=== PATIENT | male | born 1995 | race American Indian/Alaskan Native ===

== ENCOUNTER 2016-11-30 05:38 | Emergency (ER) | payer BC, SELFPAY ==
[2016-11-30] MEDS ORDERED: FUL-GLO OP ONE (11:52)
[2016-11-30] MEDS ORDERED: TETRACAINE 0.5% OU PRN (11:52)
--- NOTE | 2016-11-30 12:10 | XRay Report ---
FACIAL BONES, 4 views: History: Injury, left eye pain Multiple views of the facial bones fail to show any fractures or other bony abnormalities. The maxillary sinuses are clear. IMPRESSION: Normal study.
[2016-11-30 12:25] VITALS: BP 128/74
--- NOTE | 2016-12-02 07:33 | Emergency Department Report ---
Entered by MILTON BENSON, acting as scribe for ALLI BROWN NP. ED Eye Problem HPI - General Chief complaint: Eye Problems Stated complaint: SWELLING LF EYE Time Seen by Provider: 11/30/16 11:18 Source: patient Mode of arrival: Ambulatory Limitations: No Limitations - History of Present Illness Initial comments: 21 y/o male, nontoxic, well-nourished in appearance with no acute signs of distress presents c/o left eye trauma that occured while boxing yesterday at 2030. Pt notes only one punch took place prior to stopping. Pt denies any bleeding, visual distrubances, headache, SOB, CP, fever, chills, or drainage of the eye. Pain denies pain at this current time. Patient denies pain during eye movement. Denies visual floaters. Patient denies wearing visual glasses or contact lens. No additional Sx. NKDA. chief complaint: eye injury -: days(s) (1 day ago at 2030) Onset Description: sudden Location: left eye Place: other (boxing ) If Injury: direct trauma Eye Symptoms: pain Severity: mild Severity scale (0 -10): 0 Consistency: constant Context: trauma Associated Symptoms: none Treatments Prior to Arrival: none - Related Data Previous Rx's Medication Instructions Recorded Last Taken Type Acetaminophen/Codeine [Tylenol #3] 1 tab PO TID PRN #21 tab 02/23/15 Unknown Rx Clindamycin [Clindamycin CAP] 600 mg PO BID #28 capsule 02/23/15 Unknown Rx Doxycycline Monohydrate 100 mg PO BID #20 capsule 02/24/15 Unknown Rx [Doxycycline Monohydrate CAP] Sulfamethoxazole/Trimethoprim 1 each PO BID #20 tablet 02/24/15 Unknown Rx [Bactrim DS TAB] HYDROcodone/APAP 7.5-325 [Big Bar 1 each PO Q8HR PRN #12 tablet 11/30/16 Unknown Rx 7.5/325] Allergies Allergy/AdvReac Type Severity Reaction Status Date / Time No Known Allergies Allergy Verified 02/22/15 23:27 ED Review of Systems Comment: All other systems reviewed and negative Constitutional: denies: fever Eyes: as per HPI. denies: eye pain, eye discharge, vision change ENT: denies: ear pain, throat pain Respiratory: denies: shortness of breath Cardiovascular: denies: chest pain Gastrointestinal: denies: abdominal pain, nausea, diarrhea Musculoskeletal: denies: back pain, joint swelling, arthralgia Skin: denies: rash, lesions Neurological: denies: headache ED Past Medical Hx - Past Medical History Previous Medical History?: Yes Hx Asthma: Yes (childhood) - Surgical History Past Surgical History?: No - Social History Smoking Status: Former Smoker Substance Use Type: None - Medications Home Medications: Home Medications Medication Instructions Recorded Confirmed Last Taken Type Acetaminophen/Codeine [Tylenol #3] 1 tab PO TID PRN #21 tab 02/23/15 Unknown Rx Clindamycin [Clindamycin CAP] 600 mg PO BID #28 capsule 02/23/15 Unknown Rx Doxycycline Monohydrate 100 mg PO BID #20 capsule 02/24/15 Unknown Rx [Doxycycline Monohydrate CAP] Sulfamethoxazole/Trimethoprim 1 each PO BID #20 tablet 02/24/15 Unknown Rx [Bactrim DS TAB] HYDROcodone/APAP 7.5-325 [Big Bar 1 each PO Q8HR PRN #12 tablet 11/30/16 Unknown Rx 7.5/325] ED Physical Exam - General Limitations: No Limitations General appearance: alert, in no apparent distress - Head Head exam: Present: atraumatic, normocephalic - Eye Eye exam: Present: normal appearance, PERRL, EOMI, periorbital swelling (left ) , other (left periorbital ecchymosis). Absent: scleral icterus, conjunctival injection, nystagmus, periorbital tenderness Pupils: Present: normal accommodation - Expanded Eye Exam Expanded Eyelids: Normal Inspection: Left Pupils: Regular, Round: Left, Reactive: Left Sclera/Conjunctival: Normal Inspection: Left Anterior chamber: Normal Inspection: Left Visual acuity (R) = 20/: 25 Visual acuity (L) = 20/: 25 With correction: No - ENT ENT exam: Present: normal exam, normal orophraynx, mucous membranes moist, TM's normal bilaterally, normal external ear exam - Neck Neck exam: Present: normal inspection, full ROM. Absent: tenderness, meningismus, lymphadenopathy, thyromegaly - Respiratory Respiratory exam: Present: normal lung sounds bilaterally. Absent: respiratory distress, wheezes, rales, rhonchi, stridor - Cardiovascular Cardiovascular Exam: Present: regular rate, normal rhythm. Absent: systolic murmur, diastolic murmur, rubs, gallop - GI/Abdominal GI/Abdominal exam: Present: soft, normal bowel sounds. Absent: distended, tenderness, guarding, rebound, rigid, diminished bowel sounds, hyperactive bowel sounds, hypoactive bowel sounds, organomegaly - Rectal Rectal exam: Present: deferred - Extremities Exam Extremities exam: Present: normal inspection, full ROM, normal capillary refill. Absent: tenderness, pedal edema, joint swelling - Back Exam Back exam: Present: normal inspection - Neurological Exam Neurological exam: Present: alert, oriented X3, CN II-XII intact, normal gait - Expanded Neurological Exam Expanded Patient oriented to: Present: person, place, time Speech: Present: fluid speech Cranial nerves: EOM's Intact: Normal, Gag Reflex: Normal, Tongue Deviation: Normal, Nystagmus: Normal, Facial Sensation: Normal, Facial Palsy with Forehead Movement: Normal, Facial Palsy without Forehead Movement: Normal Cerebellar function: Finger to Nose: Normal, Heel to Buckner: Normal, Romberg: Normal Upper motor neuron: [place] Neglect: Normal, Pronator Drift: Normal, Sensory Extinction: Normal Sensory exam: Upper Extremity Light Touch: Normal, Upper Extremity Pin Prick: Normal, Upper Extremity Temperature: Normal, UE 2 Point Discrimination: Normal, Lower Extremity Light Touch: Normal, Lower Extremity Pin Prick: Normal, Lower Extremity Temperature: Normal, LE 2 Point Discrimination: Normal Motor strength exam: RUE: 5, LUE: 5, RLE: 5, LLE: 5 Best Eye Response (Lei): (4) open spontaneously Best Motor Response (Celina): (6) obeys commands Best Verbal Response (Celina): (5) oriented Lei Total: 15 - Psychiatric Psychiatric exam: Present: normal affect, normal mood - Skin Skin exam: Present: warm, dry, intact, normal color. Absent: rash ED Course Vital Signs 11/30/16 05:51 Temperature 98.5 F Pulse Rate 76 Respiratory 18 Rate Blood Pressure 139/91 O2 Sat by Pulse 100 Oximetry ED Medical Decision Making - Medical Decision Making Ed course: This is a 21-year-old male that presents with left periorbital contusion status post hit in the face during a boxing match. 1- abdomen physical exam, an x-ray of the facial bone has been obtained. Results; normal with no fracture 2-under wood's lamp, I assessed for foreign body or corneal abrasion. Patient does not have signs of corneal abrasion or foreign body. 3- patient was discharged with Big Bar 7.5 mg for pain when necessary. Patient was instructed not to operate heavy machinery when taken Big Bar due to sedation. 4- patient was instructed to follow up with his primary care doctor in 3-5 days or if symptoms worsen such as blurry vision, visual changes, pus, drainage, severe swelling to refer back to the ER. 5- at the time of discharge the patient does not seem toxic or ill in appearance. No acute signs of distress noted. Patient agrees to discharge treatment plan of care. No further question about the patient. ED Disposition Clinical Impression: Periorbital contusion of left eye Disposition: DISCHARGED TO HOME OR SELFCARE Is pt being admited?: No Does the pt Need Aspirin: No Condition: Stable Additional Instructions: If symptoms worsen such as blurry vision, visual changes, pus, drainage, severe swelling to report back to the emergency room. Prescriptions: HYDROcodone/APAP 7.5-325 [Big Bar 7.5/325] 1 each PO Q8HR PRN #12 tablet PRN Reason: Pain Referrals: PRIMARY CARE, [Primary Care Provider] - 3-5 Days [facility] [Outside] - 3-5 Days [facility] [Outside] - 3-5 Days MIKY TAYLOR MD [Staff Physician] - 3-5 Days Forms: Work/School Release Form(ED) This documentation as recorded by the MARCELINO veronica MATHEW,accurately reflects the service I personally performed and the decisions made by me,ALLI BROWN, [employer] OFFSIDER.
== END 2016-11-30 12:24 | disposition home or self-care (01) ==
LOC: ED 05:38
DX: S05.12XA Contusion of eyeball and orbital tissues, left eye, initial encounter (principal); J45.909 Unspecified asthma, uncomplicated; Z87.891 Personal history of nicotine dependence; W50.0XXA Accidental hit or strike by another person, initial encounter; Y93.71 Activity, boxing; Y99.8 Other external cause status; Y92.39 Other specified sports and athletic area as the place of occurrence of the external cause
CPT/HCPCS: 70150